=== PATIENT | female | born 1950 | race Caucasian/White ===

== ENCOUNTER → 2023-02-22 | Outpatient (CLI) | payer BC ==
--- NOTE | 2023-02-22 10:18 | XR ---
EXAMINATION TYPE: XR KUB DATE OF EXAM: 02/22/2023 HISTORY: Pain Comparison: None.Single KUB is submitted for interpretation. Findings: Right renal calculi: None Visualized. Right ureteral calculi: There are multiple calcifications within the pelvic basin most of which likel y reflect phleboliths formation. Distal ureteral calculus is not excluded. Left renal calculi: None Visualized. Left ureteral calculi: None Visualized. Bowel gas pattern is unremarkable. No free air. No mass effects. IMPRESSION: 1. There are multiple calcifications within the pelvic basin most of which likely reflect phleboliths formation. Distal ureteral calculus is not excluded.
== END | disposition home or self-care (01) ==
LOC: RADXRMAIN 09:14
PROVIDERS: ATTEND Urology
DX: N20.1 Calculus of ureter (principal)
CPT/HCPCS: 74018

== ENCOUNTER → 2023-03-16 | Outpatient (CLI) | payer MEDICARE ==
--- NOTE | 2023-03-16 10:45 | XR ---
EXAMINATION TYPE: XR KUB DATE OF EXAM: 03/16/2023 COMPARISON: 02/22/2023 HISTORY: Pain TECHNIQUE: One view abdominal series FINDINGS: The osseous structures are intact. The bowel gas pattern is nonspecific. Bilateral hip arthropathy a nd degenerative changes spine. Vascular calcifications pelvis. Cannot exclude a distal ureteral or bl adder calculus. IMPRESSION: 1. Majority of the calcifications appear to be vascular. Irregular shaped 4 mm calcification may repr esent a bladder or UVJ calcification on the right.
== END | disposition home or self-care (01) ==
LOC: LABWHC1 09:43
PROVIDERS: ATTEND Urology
DX: R10.9 Unspecified abdominal pain (principal)
CPT/HCPCS: 74018

== ENCOUNTER 2023-03-30 10:43 | Day surgery (SDC) | payer MEDICARE ==
--- NOTE | 2023-03-29 22:40 | P.GSHP ---
History of Present Illness H&P Date: 03/29/23 Chief Complaint: Right flank pain, urinary urgency The patient is a 73-year-old white female with a history of urolithiasis. Starting in December 2022, she experienced right lower back and abdominal pain. CT scan showed right hydronephrosis due to an 8 mm right distal ureteral calculus. Alternative treatment options were reviewed, and she chose to proceed with medical expulsion therapy rather than surgery. Beginning 1 month ago, she has experienced urinary urgency. She was recently seen in the office and stated that the urgency had improved, but a KUB x-ray shows a persistent 4-5 mm calculus at the ureterovesical junction. She currently denies dysuria and hematuria. - Cardiovascular Cardiovascular: Reports high blood pressure - Genitourinary (Female) Genitourinary: Reports as per HPI Past Medical History Past Medical History: Hyperlipidemia, Hypertension, Seizure Disorder Additional Past Medical History / Comment(s): no seizures in 15 years,kidney stones, History of Any Multi-Drug Resistant Organisms: None Reported Past Surgical History: Cholecystectomy, Orthopedic Surgery Additional Past Surgical History / Comment(s): d & c shereen meniscus repair, shereen carpal tunnel Past Anesthesia/Blood Transfusion Reactions: No Reported Reaction Smoking Status: Never smoker Medications and Allergies Home Medications Medication Instructions Recorded Confirmed Type Simvastatin [Zocor] 20 mg PO HS 03/23/23 03/23/23 History Tamsulosin HCl [Flomax] 0.4 mg PO HS 03/23/23 03/23/23 History Valsartan 80 mg PO DAILY 03/23/23 03/23/23 History Vit C/E/Cuperic/Zinc/Lutein 1 tab PO DAILY 03/23/23 03/23/23 History [Preservision Lutein Softgel] levETIRAcetam [Keppra] 500 mg PO Q12HR 03/23/23 03/23/23 History Allergies Allergy/AdvReac Type Severity Reaction Status Date / Time levofloxacin [From Levaquin] Allergy Rash/Hives Verified 03/23/23 13:57 Surgical - Exam - General well developed, well nourished, no distress - Neck no masses, trachea midline - Respiratory normal respiratory effort - Abdomen Abdomen: soft, non tender, no guarding, no rigid, no rebound - Psychiatric oriented to time, oriented to person, oriented to place, speech is normal, memory intact Results - Imaging Abdominal x-ray: report reviewed, image reviewed CT scan - abdomen: report reviewed Assessment and Plan (1) Calculus of ureter Status: Acute Code(s): N20.1 - CALCULUS OF URETER SNOMED Code(s): 66424836 Plan: Cystoscopy, right ureteroscopy with laser lithotripsy and possible stone basketing, possible right ureteral stent insertion. The procedure has been reviewed in detail with the patient, who understands potential risks to include anesthesia, bleeding, infection, ureteral injury, and inability to successfully remove the calculus.
[~2023-03-30 10:43] MED LIST: DEXAMETHASONE SOD PHOSPHATE 4 MG/ML 1 ML VIAL IV ONE; HYDROmorphone 0.5 MG/0.5 ML SYRINGE IVP PRN; LACTATED RINGERS 1,000 ML IV SCH; ONDANSETRON 4 MG/2 ML VIAL IVP ONE
--- NOTE | 2023-03-30 11:45 | XR ---
EXAMINATION TYPE: XR KUB DATE OF EXAM: 03/30/2023 COMPARISON: 03/16/2023 HISTORY: Preop TECHNIQUE: One view abdominal series FINDINGS: Hypertrophic and degenerative change lumbar spine. The bowel gas pattern is nonspecific. Lung bases are clear. Surgical clips right upper quadrant. Phleboliths are seen in the pelvis and there is a st able-appearing calcification overlying the bladder measuring 5 mm. Bilateral hip arthropathy with cho ndrocalcinosis. Calcification along the right greater trochanter. Degenerative changes of the spine. Kidneys: Noted definite suspicious calcifications. Limited by overlying bowel content. IMPRESSION: 1. Stable appearing pelvic calcifications. One of which appears somewhat irregular measuring 5 mm and may represent a bladder calculus.
[2023-03-30] MEDS ORDERED: fentaNYL (PF) 50 MCG/ML 2 ML AMP ONE (13:29)
[2023-03-30] MEDS ORDERED: PROPOFOL 10 MG/ML 20 ML VIAL IV ONE (13:29)
[2023-03-30] MEDS ORDERED: MIDAZOLAM 2 MG/2 ML VIAL ONE (13:29)
[2023-03-30] MEDS ORDERED: LIDOCAINE 2% INJ 20 MG/ML (2 ML VIAL) ONE (13:29)
[2023-03-30] MEDS ORDERED: IOPAMIDOL-370 100ML BTL MISCELLANE ONE (13:59)
--- NOTE | 2023-03-30 14:27 | P.OP ---
Date of Procedure: 03/30/23 Preoperative Diagnosis: Right ureteral calculus Postoperative Diagnosis: Bladder calculus Procedure(s) Performed: Cystoscopy with cystolithotripsy, bilateral retrograde pyelograms Anesthesia: CHERYL Surgeon: Quirino Caro Estimated Blood Loss (ml): 0 IV fluids (ml): 400 Pathology: other (Calculus fragments, sent for chemical analysis) Condition: stable Disposition: PACU Indications for Procedure: The patient is a 73-year-old white female with a history of urolithiasis. Starting in December 2022, she experienced right lower back and abdominal pain. CT scan showed right hydronephrosis due to an 8 mm right distal ureteral calculus. Alternative treatment options were reviewed, and she chose to proceed with medical expulsion therapy rather than surgery. Beginning 1 month ago, she has experienced urinary urgency. She was recently seen in the office and stated that the urgency had improved, but a KUB x-ray showed a persistent 4-5 mm calculus at the ureterovesical junction. The preoperative KUB x-ray suggest that the calculus now resides within the bladder. The patient was advised of this and chose to undergo removal of the calculus. She currently denies dysuria and hematuria. Operative Findings: 5 mm bladder calculus, fragmented and removed. Large cystocele. Description of Procedure: The patient was taken to the operating room and placed in the dorsal lithotomy position, with legs supported in Selvin stirrups. The external genitalia was prepped and draped sterilely. Examination was consistent with a large cystocele. The 30 lens was used to introduce the 21-Kittitian Stroud cystoscopic sheath through the urethra and into the bladder under direct vision. The urethra appeared normal. The bladder was examined in its entirety. The calculus was seen within the bladder. No tumors were seen. No diverticuli were seen. Using the 365 micron Holmium laser probe, lithotripsy was performed. After fragmenting the calculus, calculus fragments were removed and sent for chemical analysis. Ray-Tamir sponges were placed intravaginally to reduce the cystocele. It was then possible to identify the ureteral orifices. Using a 10-Kittitian cone-tipped catheter, bilateral retrograde pyelograms were performed. The left retrograde pyelogram was normal, showing a ureter which was normal in course and caliber and no evidence of hydronephrosis. The right retrograde pyelogram showed the ureter to be normal in course and caliber, but mild right hydronephrosis was noted and the system did not drain promptly. This is felt to be due to edema at the right ureteral orifice resulting from recent stone passage, and it was not felt that stent placement was warranted. The bladder was emptied and the cystoscope removed. The patient tolerated the procedure well was taken to the recovery room in stable condition.
[2023-03-30 14:29] VITALS: TEMP 97.6
[2023-03-30] MEDS ORDERED: HYDROmorphone 0.5 MG/0.5 ML SYRINGE IVP ONE (14:36)
--- NOTE | 2023-03-30 15:09 | FL ---
EXAMINATION TYPE: FL urography retrograde DATE OF EXAM: 03/30/2023 COMPARISON: NONE HISTORY: Fluoroscopy time. Fluoroscopy was provided to the referring clinician.
[2023-03-30] MEDS ORDERED: TAMSULOSIN 0.4 MG CAP.ER.24H PO ONE (15:40)
[2023-03-30] MEDS ORDERED: LABETALOL SYRINGE 5 MG/ML (4 ML SYR) IVP ONE ×3 (16:20→18:20)
[2023-03-30 17:59] VITALS: RESP 16
[2023-03-30 19:07] VITALS: BP 173/74; PULSE 74
== END 2023-03-30 18:59 | disposition home or self-care (01) ==
LOC: OR 10:43
PROVIDERS: ATTEND Urology
DX: N20.1 Calculus of ureter (principal); N21.0 Calculus in bladder; I10 Essential (primary) hypertension; E78.5 Hyperlipidemia, unspecified; Z90.49 Acquired absence of other specified parts of digestive tract; Z98.890 Other specified postprocedural states; Z88.1 Allergy status to other antibiotic agents; Z79.899 Other long term (current) drug therapy
CPT/HCPCS: 82365; 74420; 74018; 52353; J1100; J0690; J2405; J1170; Q9967; J1920

== ENCOUNTER → 2023-10-11 | Outpatient (CLI) | payer MEDICARE ==
[2023-10-11 20:07] LABS: Basophils # (A) 0.07 X 10*3/uL (0.00-0.10); Basophils % (A) 0.8 %; Eosinophils # (A) 0.22 X 10*3/uL (0.04-0.35); Eosinophils % (A) 2.4 %; HCT 41.9 % (37.2-46.3); Lymphocytes # (A) 1.38 X 10*3/uL (0.90-5.00); Lymphocytes % (A) 15.3 %; MCH 27.5 pg (27.0-32.0); MCV 88.8 FL (80.0-97.0); Monocytes # (A) 0.64 X 10*3/uL (0.20-1.00); Monocytes % (A) 7.1 %; NRBC Per 100 WBC 0 X 10*3/uL (0.00-0.01); Neutrophils % (A) 74.2 %; Platelet Count 273 X 10*3/uL (140-440); RBC 4.72 X 10*6/uL (4.10-5.20); RDW 13.6 % (11.5-14.5); WBC 9.03 X 10*3/uL (4.50-10.00)
[2023-10-11 21:27] LABS: Blood Urea Nitrogen 17.5 mg/dL (9.0-27.0); Carbon Dioxide 25.6 mmol/L (21.6-31.8); Chloride 107 mmol/L (96-109); Potassium 4.3 mmol/L (3.5-5.5); Sodium 146 mmol/L (135-145)
== END | disposition home or self-care (01) ==
LOC: LABPAT 13:59
PROVIDERS: ATTEND Obstetrics & Gynecology
DX: Z01.812 Encounter for preprocedural laboratory examination (principal); N81.11 Cystocele, midline; I10 Essential (primary) hypertension; N39.3 Stress incontinence (female) (male)
CPT/HCPCS: 80051; 82565; 84520; 85025; 87086; 93005

== ENCOUNTER 2023-10-18 08:07 | Day surgery (SDC) | payer MEDICARE ==
[2023-10-13 12:43] VITALS: BMI 32.1
[~2023-10-18 08:07] MED LIST changes: -DEXAMETHASONE SOD PHOSPHATE 4 MG/ML 1 ML VIAL IV ONE; -LACTATED RINGERS 1,000 ML IV SCH; +LIDOCAINE 1% (10MG/ML) FOR IV START INTRADERMA PRN; +MIDAZOLAM 2 MG/2 ML VIAL IV PRN; -ONDANSETRON 4 MG/2 ML VIAL IVP ONE
[2023-10-18] MEDS: LACTATED RINGERS 1,000 ML IV SCH (08:28)
[2023-10-18] MEDS: ONDANSETRON 4 MG/2 ML VIAL IVP ONE (09:02)
[2023-10-18] MEDS: DEXAMETHASONE SOD PHOSPHATE 4 MG/ML 1 ML VIAL IV ONE (09:02)
[2023-10-18] MEDS ORDERED: MIDAZOLAM 2 MG/2 ML VIAL ONE (10:47)
[2023-10-18] MEDS ORDERED: NEOSTIGMINE 1 MG/ML 10 ML VIAL ONE (10:47)
[2023-10-18] MEDS ORDERED: KETOROLAC 15 MG/ML 1 ML VIAL ONE (10:47)
[2023-10-18] MEDS ORDERED: SUCCINYLCHOLINE CHLORIDE 200 MG/10 ML VIAL IV ONE (10:47)
[2023-10-18] MEDS ORDERED: GLYCOPYRROLATE 0.2 MG/ML 2 ML VIAL ONE (10:47)
[2023-10-18] MEDS ORDERED: fentaNYL (PF) 50 MCG/ML 2 ML AMP ONE (10:47)
[2023-10-18] MEDS ORDERED: ROCURONIUM 10 MG/ML (5 ML VIAL) IV ONE (10:47)
[2023-10-18] MEDS ORDERED: PROPOFOL 10 MG/ML 20 ML VIAL IV ONE (10:47)
[2023-10-18] MEDS ORDERED: LIDOCAINE 1% INJ 10MG/ML (20 ML MDV) ONE (10:47)
[2023-10-18] MEDS ORDERED: ePHEDrine 50 MG/ML 1 ML VIAL ONE (10:47)
[2023-10-18] MEDS: GENTAMICIN 80 MG/2 ML (MDV) VIAL IRRIGATION ONE (11:24)
[2023-10-18] MEDS: VASOPRESSIN 20 UNIT/ML 1 ML VIAL SQ ONE (11:24)
[2023-10-18] MEDS: ESTRADIOL 0.1 MG/GM VAGINAL CREAM 42.5 GM TUBE VAGINAL ONE (11:26)
[2023-10-18] MEDS ORDERED: SIMETHICONE 80 MG CHEWABLE PO PRN (13:17)
--- NOTE | 2023-10-18 13:17 | P.OP ---
Date of Procedure: 10/18/23 Preoperative Diagnosis: 1. Stage 2 Uterovaginal Prolapse 2. Stage 3 Cystocele 3. Stress Urinary Incontinence Postoperative Diagnosis: Same Procedure(s) Performed: Total Vaginal Hysterectomy, Left Salpingectomy, Anterior Repair, TVT Midurethral Sling, Cystoscopy Implants: Advantage Fit TVT Midurethral Sling Anesthesia: CHERYL Surgeon: Janee Morse Shoe Cleaner #1: Phuong Barfield Estimated Blood Loss (ml): 100 IV fluids (ml): 700 Urine output (ml): 300 (clear yellow) Pathology: other (uterus, cervix, left fallopian tube) Condition: stable Disposition: floor Indications for Procedure: Ms. Gao is a 73 year old with Stage 2 Uterovaginal Prolapse, Stage 3 Cystocele, and Stress Urinary Incontinence. The risks, benefits, and advantages of Total Vaginal Hysterectomy, Left Salpingectomy, Anterior Repair, TVT Midurethral Sling, Cystoscopy were discussed with the patient including risk of bleeding, infection, damage to surrounding structures including bladder/bowel /ureters, and post-operative urinary retention. The patient understands these risks and desires to proceed with surgery as scheduled. All questions answered. Operative Findings: Normal appearing uterus, ovaries high in the pelvis an unable to be visualized. Normal bladder without any trauma from the surgery or sling placement, bilateral ureteral jets appreciated. Description of Procedure: Prior to the beginning of the procedure the team paused to verify the patient's identity, as well as the procedure to be performed and the correct side/site. All equipment required was ready and available. The patient was positioned appropriately. Patient was cleaned and draped and legs were placed in lithotomy position using Selvin stirrups. Conway catheter was placed to drain the bladder. A weighted speculum was placed in the posterior vaginal vault. The cervix was grasped with a double-tooth tenaculum. Vasopressin was injected circumstantially around the cervix. With downward traction, a circumferential incision was made along the vaginal mucosa overlying the reflection. This allowed dissection and entrance into the posterior cul-de-sac. An 0-Vicryl suture was placed to tag the posterior peritoneum. At this time, the uterosacral ligaments were visualized. These were clamped and ligated with 0-Vicryl suture. The uterosacral ligaments were held bilaterally. The cervicovesical space was then created by both blunt and sharp dissection allowing the cardinal ligaments to be visualized. These were clamped and ligated with 0-Vicryl suture as well. Once in the cervicovesical space the uterosacral-cardinal ligament complex was completely ligated with 0-Vicryl suture. The uterine arteries were clamped and ligated with 0-Vicryl suture. The deshawn clamps were moved sequentially upward on the uterus until a small adnexal pedicle remained. The anterior cul-de-sac was now entered bluntly. The uterus was inverted and the pedicles were cut. The uterine specimen was delivered and sent for pathology. Bilateral fallopian tubes were grapsed, ligated with a [id number] stitch, and cut. Bilateral uteroovarian ligaments were doubly ligated first with a transfixing 0-Vicryl suture and then reinforced with a free 0-Vicryl tie in the usual fashion. The right fallopian tube was isolated, cauterized, and cut with the ligasure. The large weighted speculum was removed and replaced with the small weighted speculum. A modified Novak Culdoplasty was performed with the uterosacral ligaments held by pieces of 0- Vicryl. The vaginal cuff inferior to the level of the Novak Culdoplasty was closed with 0-Vicryl suture in a running fashion. Attention was then turned to the anterior vaginal wall. Two Allis Clamps were used to grasp the vaginal mucoas and Pitressin was injected inferior to the vaginal epithelium as a means for hydro-dissection. A vertical midline incision was given from under the urethra to the level of the cuff. The underlying endopelvic fascia and cystocele was then dissected away from the vaginal epithelium using Metzenbaum scissors and allis clamps for retraction. The dissection was carried out to the lateral pelvic side wall on either side. A purse-string with 2-0 Vicryl was placed to approximate the endopelvic fascia over the cystocele, thus reducing it. Excess vaginal musosa was trimmed. Attention was then turned to the TVT part of the procedure. Two sites were marked on the anterior abdominal wall with a marking pen, one 1 fingerbreadth to the left and the other 1 fingerbreadth to the right of the midline, just above the pubic bone.Two sites were marked on the anterior abdominal wall with a marking pen, one 1 fingerbreadth to the left and the other 1 fingerbreadth to the right of the midline, just above the pubic bone. Attention was now turned to the vaginal field where a 18-Maldivian Conway catheter was already present, and the urine was drained. Retractors were used for visualization. The anterior vaginal wall over the location of the mid urethra was then injected with 1% lidocaine with epinephrine in the mid portion of the vagina and the lateral aspects heading to the inferior surface of the pubic bone bilaterally. Two Allis clamps were then placed approximately 2 cm apart with the mid portion of the Allis clamps corresponding to the mid portion of the urethra as determined by palpation of the Conway within the patient's urethra. A scalpel was then used to incise between the 2 Allis clamps, and Metzenbaum scissors were used to dissect the vaginal mucosa off the urethra heading to the inferior surface of the pubic bone bilaterally. The [employer] Advantage Fit TVT trocar coupled to the plastic introducer sheath was now placed through the right sided anterior vaginal wall channel, and the trocar was rotated through the right retropubic space with careful attention being paid to stay beneath and behind the pubic bone as it rotated through the space up to the previously made simeon on the right anterior abdominal wall. The TVT trocar was uncoupled from the introducer sheath and the sheath was tagged and left in place. The TVT trocar was now placed into the second introducer sheath and positioned within the left anterior vaginal wall channel and rotated through the left retropubic space with careful attention being paid to stay beneath and behind the pubic bone as it rotated through this site up to the previously made simeon on the left anterior abdominal wall. 70-degree cystourethroscope was used to confirm that there was no trocar placement trauma to the bladder from either side, and no trauma to the urethra. Bilateral ureteral jets were visualized. Therefore, the bladder was drained, and the mesh was brought through the abdominal wall site. The mesh was brought to sit underneath of the urethra without any tensioning at all as determined by a hemostat used as a spacer between the urethra and the sling. The hemostat as a spacer was used to stabilize the position of the mesh as plastic sheaths were removed through the abdominal wall site. The skin wounds were closed with the use of skin glue after trimming the mesh. The vaginal wound was closed with a running stitch of 2-0 Vicryl. 1-inch vaginal packing coated with Vaginal Estrace was used to pack the vagina at the end of the case as a precautionary measure. Hemostasis was noted to be excellent throughout, and final sponge, instrument, and needle count was noted to be correct. The patient was moved back to the preoperative holding area in stable condition having tolerated the procedure well.
[2023-10-18] MEDS: IV FLUID CONTINUATION 1,000 ML IV ONE (14:27)
[2023-10-18 15:11] VITALS: RESP 16
[2023-10-18] MEDS: IBUPROFEN 600 MG TAB PO PRN (20:08)
[2023-10-18] MEDS: amLODIPine 10 MG TAB PO SCH (21:33)
[2023-10-18] MEDS: ATORVASTATIN 10 MG TAB PO SCH (21:33)
[2023-10-18] MEDS: levETIRAcetam 500 MG TAB PO SCH (21:34)
[2023-10-19 08:25] LABS: Basophils % (A) 0 %; Eosinophils % (A) 0 %; HCT 37.6 % (34.0-46.0); HGB 11.8 gm/dL (11.4-16.0); Lymphocytes # (A) 1.1 k/uL (1.0-4.8); Lymphocytes % (A) 7 %; MCH 27.9 pg (25.0-35.0); MCHC 31.4 g/dL (31.0-37.0); MCV 88.9 fL (80.0-100.0); Mean Platelet Volume 9.4; Monocytes # (A) 0.7 k/uL (0-1.0); Monocytes % (A) 5 %; Neutrophils # (A) 12.8 k/uL (1.3-7.7); Neutrophils % (A) 85 %; Platelet Count 246 k/uL (150-450); RBC 4.23 m/uL (3.80-5.40); RDW 13.9 % (11.5-15.5)
[2023-10-19 08:56] VITALS: BP 131/76; PULSE 68; TEMP 97.6
[2023-10-19] MEDS: METOPROLOL TARTRATE 50 MG TAB PO SCH (10:24)
[2023-10-19] MEDS: CALCIUM CARB-VIT D 500 MG-5 MCG TAB PO SCH (10:24)
[2023-10-19] MEDS: VALSARTAN 160 MG TAB PO SCH (10:24)
--- NOTE | 2023-10-19 12:20 | P.DS ---
Providers Date of admission: 10/18/2023 Expected date of discharge: 10/19/23 Attending physician: Janee Morse MD Primary care physician: [facility] Course: Ms. Gao is a 73 year old POD#1 s/p TVH, LS, TVT sling, and Cystoscopy. The patient is doing well this morning and had no acute events overnight. The patient has been able to void after her catheter was removed with a postvoid residual of 130. She denies pain. She has had some light vaginal spotting postoperatively. She denies fevers, chills, chest pain, shortness of breath, pain or swelling in the legs. She will be discharged home and plans to take Mo alondra and Tylenol as needed [id number]. She has a follow-up with me in the office on October 31 for a postoperative appointment. We reviewed postoperative restrictions including pelvic rest for 6 weeks and no heavy lifting for 4 weeks more than 15 pounds. All questions were answered Assessment: 73 year old POD#1 s/p TVH, LS, TVT Sling, Cystoscopy Patient Condition at Discharge: Good Plan - Discharge Summary Discharge Rx Participant: No New Discharge Prescriptions: No Action levETIRAcetam [Keppra] 500 mg PO BID Valsartan 320 mg PO QAM Metoprolol. 50 mg PO QAM Calcium (Unknown Dose) 1 tab PO DAILY amLODIPine [Norvasc] 10 mg PO HS Simvastatin [Zocor] 20 mg PO HS Vit C/E/Cuperic/Zinc/Lutein [Preservision Lutein Softgel] 1 tab PO DAILY Vitamin D (Unknown Dose) 1 tab PO DAILY Discharge Medication List Simvastatin [Zocor] 20 mg PO HS 03/23/23 [History] Vit C/E/Cuperic/Zinc/Lutein [Preservision Lutein Softgel] 1 tab PO DAILY 03/23/23 [History] levETIRAcetam [Keppra] 500 mg PO BID 03/23/23 [History] Calcium (Unknown Dose) 1 tab PO DAILY 10/13/23 [History] Metoprolol. 50 mg PO QAM 10/13/23 [History] Valsartan 320 mg PO QAM 10/13/23 [History] Vitamin D (Unknown Dose) 1 tab PO DAILY 10/13/23 [History] amLODIPine [Norvasc] 10 mg PO HS 10/13/23 [History] Follow up Appointment(s)/Referral(s): Janee Morse MD [STAFF PHYSICIAN] - 2 Weeks Activity/Diet/Wound Care/Special Instructions: Postoperative Instructions 1. No heavy lifting or straining (exercising) until after 6 week checkup. 2. Do not resume sexual relations for 6 weeks or longer if uncomfortable. 3. Keep abdominal incision clean and dry: You may wear a dressing if more comfortable. 4. Keep any areas repaired with stitches clean and dry. 5. Call the office, , within the next week to make appointment for your 2 week checkup 6. Report any of the following occurrences to the doctor promptly: a. Heavy, excessive bleeding b. Chills, fever c. Burning or frequency of urination d. Pain or redness around the incisions Discharge Disposition: HOME SELF-CARE
[2023-10-19] MEDS ORDERED: ACETAMINOPHEN TAB 325 MG TAB PO PRN (13:18)
== END 2023-10-19 12:30 | disposition home or self-care (01) ==
LOC: OR 08:07 → 4FBP 13:44 → OR 10-19 12:30
PROVIDERS: ATTEND Obstetrics & Gynecology
DX: N81.2 Incomplete uterovaginal prolapse (principal); N39.3 Stress incontinence (female) (male); Z88.1 Allergy status to other antibiotic agents; Z82.49 Family history of ischemic heart disease and other diseases of the circulatory system; Z82.3 Family history of stroke; Z79.899 Other long term (current) drug therapy
CPT/HCPCS: 58262; 57288; 57240; 86900; 86901; 85025; 86850; 88307; C1771; J2250; J0330; J1100; J2710; J0690; J2405; J2001; J3010; J1580; J1885; J2704